=== PATIENT | male | born 2000 | race Two or more races ===

== ENCOUNTER 2021-02-28 18:51 | Emergency (ER) | payer SELFPAY ==
[~2021-02-28] VITALS: Ht 162.6 cm; Wt 65.0 kg
[2021-02-28] MEDS ORDERED: NALOXONE 0.4 MG/ML, 1ML IVPush PRN (19:00)
[2021-02-28] MEDS ORDERED: SODIUM CHLORIDE 0.9% 1,000ML IVBOLUS ONE ×2 (19:00→20:00)
[2021-02-28] MEDS ORDERED: ONDANSETRON 2MG/ML, 2ML IVPush ONE (19:00)
[2021-02-28] MEDS ORDERED: ONDANSETRON 2MG/ML, 2ML ONE (19:05)
--- NOTE | 2021-02-28 19:10 | NUR ---
Patient BIBA from the [place] [facility] [facility] for a poss OD. Per EMS, upon their arrival, patient GCS 3. Narcan admin and patient vomited which smelled of ETOH, however patient mentation improved slightly. EMS found 1/2 bottle of vodka and 1/2 bottle of captain andria with patient. BGL 96 Patient arousable to verbal/painful stimuli. Oriented to person and time. Intermittent inappropriate answers and repeats himself at times when asked questions. Patient admits to ETOH use but denies drug use stating, "I've always been afraid to use drugs."
--- NOTE | 2021-02-28 19:12 | NUR ---
Admin Zofran per mar. Admin Narcan per mar with no change to patient mentation.
--- NOTE | 2021-02-28 19:12 | NUR ---
Patient vomited once for this RN; small amount. No blood noted. No aspiration noted. Suctioned patient mouth, which is now clear of any vomitus.
[2021-02-28] MEDS ORDERED: PLEASE ENTER HEIGHT AND WEIGHT MC SCH (19:30)
[2021-02-28] MEDS ORDERED: PLEASE ENTER ALLERGIES MC SCH (19:30)
[2021-02-28 19:38] LABS: BASOPHILS % (AUTO) 0 % (0-1); EOSINOPHILS % (AUTO) 1 % (1-7); LYMPHOCYTES % (AUTO) 28 % (22-44); MEAN CORPUSCULAR HEMOGLOBIN 29.9 pg (27.5-34.5); MEAN PLATELET VOLUME 8.5 fL (7.4-10.4); MONOCYTES % (AUTO) 8 % (2-9); NEUTROPHILS % (AUTO) 62 % (42-75); PLATELET COUNT 271 x10^3/uL (130-400); RED BLOOD COUNT 5.52 x10^6/uL (4.38-5.82); RED CELL DISTRIBUTION WIDTH 14.6 % (9.4-14.8)
--- NOTE | 2021-02-28 19:46 | NUR ---
Patient drowsy, resting in gurney. Hiccups noted. Respirations even and unlabored.
[2021-02-28 19:52] LABS: ALANINE AMINOTRANSFERASE 23 U/L (12-78); ALBUMIN 4.6 g/dL (3.4-5.0); ANION GAP 6 mmol/L (5-15); CHLORIDE 108 mmol/L (98-107)
[2021-02-28 19:54] LABS: ALKALINE PHOSPHATASE 84 U/L (45-117); BILIRUBIN,TOTAL 0.4 mg/dL (0.2-1.0)
[2021-02-28 19:58] LABS: SALICYLATE LEVEL < 1.7 mg/dL (2.8-20.0)
--- NOTE | 2021-02-28 20:01 | NUR ---
Patient BP slightly decreased. Admin more NS per mar.
--- NOTE | 2021-02-28 20:50 | NUR ---
REPORT FROM KRISTIN BENAVIDES
--- NOTE | 2021-02-28 22:06 | NUR ---
PT SITTING UPRIGHT ON GURNEY, RESTING CALMLY WITH EYES CLOSED. NADN, VSS. PT DENIES ANY NEEDS AT THIS TIME. CALL LIGHT AND PERSONAL BELONGINGS WITHIN REACH.
--- NOTE | 2021-02-28 22:33 | NUR ---
PT SITTING UPRIGHT ON GURNEY, AWAKE AND ALERT. A&OX4. ABLE TO CONVERSE APPROPRIATELY. PT REPORTS JUST CONSUMING "A SHIT LOAD OF ALCOHOL AND PARTIED HARD, NO DRUG USE." PT DENIES ANY NEEDS AT THIS TIME. CALL LIGHT AND PERSONAL BELONGINGS WITHIN REACH. PT PROVIDED URINAL PER REQUEST
[2021-02-28 23:13] LABS: AMPHETAMINE SCREEN, URINE Negative (Negative); BARBITURATE SCREEN, URINE Negative (Negative); BENZODIAZEPINE SCREEN, URINE Negative (Negative); CANNABINOID SCREEN, URINE Negative (Negative); COCAINE SCREEN, URINE Negative (Negative); METHADONE SCREEN, URINE Negative (Negative); OPIATE SCREEN, URINE Negative (Negative)
--- NOTE | 2021-02-28 23:14 | NUR ---
PT AMBULATORY WITH STEADY GAIT. A&OX4. PT PROVIDED CLOTHING AND SOCKS UPON D/C. NO ADDITIONAL NEEDS AT THIS TIME. ERP AWARE. AWAITING D/C
--- NOTE | 2021-02-28 23:40 | NUR ---
Patient given discharge instructions and they have confirmed that they understand the instructions. Patient ambulatory with steady gait.
== END 2021-02-28 23:42 | disposition home or self-care (01) ==
LOC: EDBD 18:51 → ED 19:21 → MERGE 19:21 → ED 23:42
DX: F10.229 Alcohol dependence with intoxication, unspecified (principal); R41.82 Altered mental status, unspecified; R11.10 Vomiting, unspecified; R94.31 Abnormal electrocardiogram [ECG] [EKG]; Y90.0 Blood alcohol level of less than 20 mg/100 ml
CPT/HCPCS: 36415; 71045; 80053; 80299; 80307; 80320; 80329; 85025; 93005; 96361; 96374; 96375; 99285; J2310; J2405; J7030; G0480